=== PATIENT | male | born 1990 | race Caucasian/White ===

== ENCOUNTER 2024-01-28 03:13 | Emergency (ER) | payer SELFPAY ==
[2024-01-28] MEDS ORDERED: Sodium Chloride 0.9% 10 ML Syringe FLUSH PRN (03:28)
[2024-01-28 03:33] LABS: BASOPHILS ABSOLUTE AUTO 0.05 10^3/uL (0.00-0.10); BASOPHILS PERCENT AUTO 0.9 % (0.0-1.0); EOSINOPHILS ABSOLUTE AUTO 0.14 10^3/uL (0.10-0.30); EOSINOPHILS PERCENT AUTO 2.6 % (1.0-3.0); HEMATOCRIT 43.8 % (40.0-52.0); HEMOGLOBIN 15.2 g/dL (13.0-17.0); IMMATURE GRAN ABSOLUTE AUTO 0.01 10^3/uL (0.00-0.50); IMMATURE GRAN PERCENT AUTO 0.2 % (0.0-5.0); LYMPHOCYTES ABSOLUTE AUTO 2.76 10^3/uL (1.00-4.00); LYMPHOCYTES PERCENT AUTO 52.2 % (20.0-40.0); MEAN CORPUSCULAR HEMOGLOBIN 30.8 pg (27.0-31.0); MEAN CORPUSCULAR HGB CONC 34.7 g/dL (32.0-36.0); MEAN CORPUSCULAR VOLUME 88.7 fL (82.0-92.0); MEAN PLATELET VOLUME 9.3 fL (7.4-10.4); MONOCYTES ABSOLUTE AUTO 0.41 10^3/uL (0.10-0.80); MONOCYTES PERCENT AUTO 7.8 % (2.0-8.0); NEUTROPHILS ABSOLUTE AUTO 1.92 10^3/uL (2.50-7.00); NEUTROPHILS PERCENT AUTO 36.3 % (50.0-70.0); PLATELET COUNT,PLT 247 10^3/uL (150-400); RED BLOOD CELL COUNT 4.94 10^6/uL (4.50-6.00); RED CELL DISTRIBUTION WIDTH 11.8 % (11.5-14.5); WHITE BLOOD CELL COUNT,WBC 5.29 10^3/uL (5.00-10.00)
[2024-01-28] MEDS: Sodium Chloride 0.9% 1,000 ML IV ONE (03:40)
[2024-01-28 03:45] LABS: ALANINE AMINOTRANSFERASE,ALT 41 U/L (14-63); ALBUMIN 3.69 g/dL (3.40-5.00); ALKALINE PHOSPHATASE 70 U/L (46-116); ANION GAP 17.5 mmol/L (5-15); ASPARTATE AMNIOTRANSFERASE,AST 19 U/L (15-37); BILIRUBIN TOTAL 0.4 mg/dL (0.2-1.0); BLOOD UREA NITROGEN,BUN 11 mg/dL (7-18); CALCIUM 8.7 mg/dL (8.7-10.3); CARBON DIOXIDE,CO2 25.9 mmol/L (21.0-32.0); CHLORIDE,CL 104 mmol/L (98-107); CREATININE 0.84 mg/dL (0.51-1.17); EST CRCL DRUG DOSING (CG) 140.04 mL/min; ESTIMATED GFR 117 mL/min (>=60); GLUCOSE RANDOM 126 mg/dL (70-140); POTASSIUM,K 3.4 mmol/L (3.5-5.1); PROTEIN TOTAL,TP 7.2 g/dL (6.4-8.2); SODIUM,NA 144 mmol/L (136-145)
[2024-01-28 04:57] VITALS: BP 124/85; PULSE 87
== END 2024-01-28 04:50 | disposition home or self-care (01) ==
LOC: KA.ED 03:13
DX: R00.2 Palpitations (principal); Z79.899 Other long term (current) drug therapy
CPT/HCPCS: 71046; 80053; 84484; 85025; 96360; 99285-25; J7030